=== PATIENT | female | born 1950 | race Caucasian/White ===

== ENCOUNTER → 2016-08-02 | Outpatient (CLI) | payer BC ==
[~2016-08-02] MED LIST: A-F BETAFOOD PO; ADRENAL; ALDACTONE 25MG25 M1 PO; AMYLASE PO; ASPIRIN E.C. 8181 MG PO; B COMPLEX1 TA2 PO; CARVEDILOL3.125 MG PO; EFFIENT10 MG PO; LIP PO; LISINOPRIL10 MG PO; METOPROLOL25 MG PO; OCUVITE1 TA1 PO; PRIL40 PO; PRILOSEC 20MG20 MG PO; TOPROL XL 25MG25 MG PO; TYLENOL 500MG500 MG PO; UNABLE; VITAMIN D31000 IU PO; [UNRECOGNIZED DRUG - CODE] PO; [UNRECOGNIZED DRUG - OTHER] PO; [UNRECOGNIZED DRUG - OTHER] PO; [UNRECOGNIZED DRUG - OTHER] PO
== END ==
LOC: COL.RAD 09:48
DX: M16.12 Unilateral primary osteoarthritis, left hip (principal)
CPT/HCPCS: J3301; Q9967

== ENCOUNTER → 2017-01-12 | Outpatient (CLI) | payer BC | LOC: COL.RAD 11:15 | DX: M16.12 Unilateral primary osteoarthritis, left hip (principal) | CPT/HCPCS: J3301; Q9967 ==

== ENCOUNTER 2017-03-03 12:22 | Day surgery (SDC) | payer BC ==
[2017-03-03] VITALS (10 sets, daily range): BP systolic 121–149; BP diastolic 70–87; PULSE 52–70
[~2017-03-03] VITALS: Ht 167.6 cm; Wt 92.5 kg
[2017-03-03 13:03] LABS: HEMATOCRIT 41.6 % (37.0-47.0); HEMOGLOBIN 14.2 g/dl (12.5-16.0); MEAN CELL VOLUME 91 fl (80.0-100.0); MEAN CORPUSCULAR HEMOGLOBIN 31 pg (27.0-31.0); MEAN CORPUSCULAR HGB CONC 34 g/dl (33.0-37.0); PLATELET COUNT 198 K/mm3 (130-400); RED BLOOD COUNT 4.59 M/mm3 (4.10-5.30); REDCELL DISTRIBUTION WIDTH-CV 12.2 % (11.5-14.5)
[2017-03-03 13:10] LABS: CALCIUM 9.1 mg/dL (8.4-10.2); CREATININE, serum 0.74 mg/dL (0.52-1.25); POTASSIUM 3.9 mmol/L (3.4-5.0)
[2017-03-03 13:14] LABS: PROTHROMBIN TIME 11.4 SECONDS (9.7-12.8)
[2017-03-03] MEDS ORDERED: COZAAR 50MG50 MG/TAB PO (13:50)
[2017-03-03] MEDS ORDERED: TOPROL XL 25MG25 MG PO (13:51)
[2017-03-03] MEDS ORDERED: CEPHALEXIN500 M1 PO (16:26)
== END 2017-03-03 17:55 | disposition home or self-care (01) ==
LOC: COL.CAR 12:22
PROVIDERS: Internal Medicine Interventional Cardiology
DX: Z45.02 Encounter for adjustment and management of automatic implantable cardiac defibrillator (principal); I11.0 Hypertensive heart disease with heart failure; I50.22 Chronic systolic (congestive) heart failure; I25.2 Old myocardial infarction; E78.5 Hyperlipidemia, unspecified; Z83.3 Family history of diabetes mellitus
CPT/HCPCS: C1721; J0690; J2250; J3010; J7030

== ENCOUNTER → 2017-05-12 | Outpatient (CLI) | payer BC ==
[~2017-05-12] MED LIST changes: +CEPHALEXIN500 M1 PO; +COZAAR 50MG50 MG/TAB PO
== END ==
LOC: COL.LAB 10:12
DX: Z01.812 Encounter for preprocedural laboratory examination (principal); M25.9 Joint disorder, unspecified

== ENCOUNTER → 2019-01-09 | Outpatient (CLI) | payer MEDICARE, OTHER | LOC: MC.RAD 09:30 | DX: Z12.31 Encounter for screening mammogram for malignant neoplasm of breast (principal) ==

== ENCOUNTER 2019-04-26 07:27 | Day surgery (SDC) | payer MEDICARE, OTHER ==
[~2019-04-26] VITALS: Ht 165.1 cm; Wt 100.0 kg
[2019-04-26] MEDS ORDERED: GLUCOPHAGE XR500 M1 PO (07:37)
[2019-04-26] MEDS ORDERED: ZANTAC 150MG T150 MG PO (07:37)
[2019-04-26 07:45] VITALS: BP 169/97; PULSE 79; TEMP 98.3
[2019-04-26 09:25] VITALS: BP 122/74; BP 126/98; PULSE 66; PULSE 69; TEMP 97.4
--- NOTE | 2019-04-26 09:25 | NUR ---
Pt returns from endo procedure via cart. Pt ambulates from cart to recliner with RN assist. Monitors on and alarms set. Call light within reach. Report received from JULISA Rodríguez. Pt denies pain or nausea. Pt alert and answering all questions appropriately. Pt requests juice and crackers. brought to room.
[2019-04-26 09:30] VITALS: BP 122/74; PULSE 66
[2019-04-26 09:45] VITALS: BP 127/83; PULSE 67
--- NOTE | 2019-04-26 09:45 | NUR ---
Pt taking food and drink well. No complications voiced by patient.
[2019-04-26 10:00] VITALS: BP 141/82; PULSE 60
--- NOTE | 2019-04-26 10:12 | NUR ---
Discharge instructions given to patient and . All questions answered to their satisfaction. Handed to them are a thank you card, discharge instructions, diagnosis information, procedural photos, and a discharge med sheet.
--- NOTE | 2019-04-26 10:18 | NUR ---
Pt transferred out of hospital via wheelchair and this RN to waiting private vehicle driven by .
== END 2019-04-26 10:18 | disposition home or self-care (01) ==
LOC: SDCO 07:27
DX: Z12.11 Encounter for screening for malignant neoplasm of colon (principal); D12.0 Benign neoplasm of cecum; I25.10 Atherosclerotic heart disease of native coronary artery without angina pectoris; I11.0 Hypertensive heart disease with heart failure; I50.9 Heart failure, unspecified; I25.2 Old myocardial infarction; Z95.0 Presence of cardiac pacemaker; K21.9 Gastro-esophageal reflux disease without esophagitis; K44.9 Diaphragmatic hernia without obstruction or gangrene; E66.01 Morbid (severe) obesity due to excess calories; Z68.36 Body mass index [BMI] 36.0-36.9, adult; Z86.010 Personal history of colon polyps; Z96.651 Presence of right artificial knee joint; Z79.82 Long term (current) use of aspirin; Z79.84 Long term (current) use of oral hypoglycemic drugs; Z88.6 Allergy status to analgesic agent
CPT/HCPCS: J2704; J7030

== ENCOUNTER → 2020-06-04 | Outpatient (CLI) | payer MEDICARE, OTHER ==
[~2020-06-04] MED LIST changes: +GLUCOPHAGE XR500 M1 PO; +ZANTAC 150MG T150 MG PO
== END ==
LOC: MC.RAD 14:45
DX: Z12.31 Encounter for screening mammogram for malignant neoplasm of breast (principal)

== ENCOUNTER → 2023-06-15 | Outpatient (CLI) | payer MEDICARE | LOC: MC.RAD 10:48 | DX: Z12.31 Encounter for screening mammogram for malignant neoplasm of breast (principal); E11.69 Type 2 diabetes mellitus with other specified complication ==